=== PATIENT | female | born 1965 | race American Indian/Alaskan Native ===

== ENCOUNTER → 2019-02-27 | Outpatient (CLI) | payer OTHER ==
[~2019-02-27] MED LIST: IRON PO; MULVITA PO; STOMUL PO; VITAMIN B12 PO; VITAMIN E PO; VITAMIN PO
== END | disposition home or self-care (01) ==
LOC: LAB SHORT 18:00 → LAB EV 18:00
DX: R30.0 Dysuria (principal)
CPT/HCPCS: 87086

== ENCOUNTER → 2020-08-05 | Outpatient (CLI) | payer OTHER ==
[~2020-08-05] MED LIST changes: +AMIT10; +AZO CRANBERRY1 EAC1; +Apple Cider Vi300 MG; +Feosol45 MG; +NASAL DECONGEST30 MG; +Natural Vita400 UNIT; +VITAMIN D35000 UNI2; +XYZAL5 MG
== END ==
LOC: LAB SHORT 14:20 → LAB 14:20
DX: R30.9 Painful micturition, unspecified (principal)
CPT/HCPCS: 87086

== ENCOUNTER → 2024-03-12 | Outpatient (CLI) | payer OTHER | LOC: LAB SHORT 16:09 → LAB 16:09 | DX: N39.0 Urinary tract infection, site not specified (principal) | CPT/HCPCS: 87077; 87086; 87186 ==

== ENCOUNTER → 2024-07-10 | Outpatient (CLI) | payer OTHER | LOC: LAB 16:19 → LAB SHORT 16:19 | DX: N39.0 Urinary tract infection, site not specified (principal) | CPT/HCPCS: 87086 ==